=== PATIENT | female | born 1960 | race Caucasian/White ===

== ENCOUNTER 2020-07-27 10:59 | Outpatient (REF) | payer BC, SELFPAY | END 2020-07-27 11:00 | disposition home or self-care (01) | LOC: HO.WFDLDS 10:59 | PROVIDERS: PCP Internal Medicine; Visit Provider Internal Medicine | DX: Z20.828 Contact with and (suspected) exposure to other viral communicable diseases (principal) | CPT/HCPCS: 87635 ==

== ENCOUNTER → 2021-12-07 10:48 | Outpatient (BNVA) | payer BC, SELFPAY | PROVIDERS: PCP Internal Medicine; Visit Provider Physician Assistant ==

== ENCOUNTER → 2022-10-11 10:56 | Outpatient (BNVA) | payer BC, SELFPAY | PROVIDERS: PCP Internal Medicine; Visit Provider Physician Assistant | DX: Z13.89 Encounter for screening for other disorder (principal) ==

== ENCOUNTER 2022-10-11 11:49 | Outpatient (REF) | payer BC, SELFPAY ==
[2022-10-11 14:15] LABS: MANUAL DIFF FLAG NO
[2022-10-11 14:27] LABS: Basophils Percent Auto 0.7 % (0-2); Eosinophils Absolute Auto 0.2 X10*3/uL (0.0-0.4); Eosinophils Percent Auto 3.1 % (0-4); Hematocrit 37.1 % (37.0-47.0); Imm Gran Abs Auto 0.01 X10*3/uL (0.00-0.03); Imm Gran Pct Auto 0.2 % (0.0-0.4); Lymphocytes Absolute Auto 1.9 X10*3/uL (1.2-4.9); Lymphocytes Percent Auto 32.1 % (20-40); Mean Corpuscular HGB Conc 32.3 g/dl (31.0-35.0); Mean Corpuscular Hemoglobin 29.1 pg (27.0-33.0); Mean Corpuscular Volume 89.8 fL (80.0-98.0); Mean Platelet Volume 11.4 fL (9.4-12.3); Monocytes Absolute Auto 0.6 X10*3/uL (0.1-1.2); Monocytes Percent Auto 9.6 % (2-11); Neutrophils Absolute Auto 3.2 x10*3/uL (2.0-8.3); Neutrophils Percent Auto 54.3 % (45-73); Platelet Count 308 X10*3/uL (160-400); Red Blood Count 4.13 X10*6/uL (4.20-5.50); Red Cell Distribution Width 12.8 % (11.0-16.0); White Blood Count 5.8 X10*3/uL (4.8-10.8)
[2022-10-11 15:26] LABS: Alanine Aminotransferase 14 U/L (0-31); Albumin Level 4.4 g/dL (3.5-5.0); Alkaline Phosphatase 70 U/L (39-117); Anion Gap 12 (12-20); Aspartate Amino Transferase 21 U/L (5-31); Bilirubin Total 0.4 mg/dL (0.0-1.0); Blood Urea Nitrogen 17 mg/dL (9-16); Carbon Dioxide 27 mmol/L (22-29); Chloride 107 mmol/L (96-108); Estimated Glomerular Filt Rate > 60; Glucose Random 87 mg/dL (60-115); Potassium 4.1 mmol/L (3.3-5.1); Sodium 142 mmol/L (135-145); Total Protein 7.2 g/dL (6.5-8.0)
== END 2022-10-11 11:50 | disposition home or self-care (01) ==
LOC: HO.WFDLDS 11:49
PROVIDERS: Visit Provider Physician Assistant
DX: R10.13 Epigastric pain (principal); K58.9 Irritable bowel syndrome, unspecified; K21.9 Gastro-esophageal reflux disease without esophagitis; I42.2 Other hypertrophic cardiomyopathy
CPT/HCPCS: 36415; 80053; 85025

== ENCOUNTER 2022-10-11 14:58 | Outpatient (REF) | payer BC, SELFPAY ==
[2022-10-15 11:35] LABS: H Pylori Breath Test Negative (Negative)
== END 2022-10-11 14:59 | disposition home or self-care (01) ==
LOC: HO.LNP 14:58
PROVIDERS: Visit Provider Physician Assistant
DX: A04.8 Other specified bacterial intestinal infections (principal)
CPT/HCPCS: 83013

== ENCOUNTER 2022-12-05 08:29 | Outpatient (REF) | payer BC, SELFPAY ==
--- NOTE | ~2022-12-05 | FL_ITS ---
EXAMINATION: XR UPPER GI SERIES WITH SMALL BOWEL CLINICAL INFORMATION: Epigastric pain. COMPARISON: GI series 12/07/2007. TECHNIQUE: Routine upper GI air-contrast study with small bowel follow-through was performed. FINDINGS: Single supine view of the abdomen reveals scattered stool seen in colon without distention. There is no organomegaly. There is a small 7 mm phlebolith in the right pelvis. Following oral administration of thick barium and effervescent granules, there is normal propagation of bolus from the oral cavity through the pharynx and esophagus and into the stomach without any evidence of obstruction, narrowing or stricture. On placing patient supine and prone lying, the course, caliber and peristalsis of the stomach and the duodenum are normal. There is mild gastroesophageal reflux without hiatal hernia. Spot images of the small bowel loops reveal normal small bowel mucosal pattern. No obstruction seen. The small bowel transit time less than 1. Spot images of the ileocecal junction reveals normal terminal ileum. Appendix is normal caliber. FLUOROSCOPY TIME: 2.7 minutes. DOSE AREA PRODUCT: 40.293 uGy-m2 (microgray-meter squared). FL/FL upper GI small bowel IMPRESSION: Mild gastroesophageal reflux. Moderate constipation. Otherwise unremarkable upper GI air-contrast study. Normal small bowel follow-through.
== END 2022-12-05 08:30 | disposition home or self-care (01) ==
LOC: HO.XRAY 08:29
PROVIDERS: Visit Provider Physician Assistant
DX: R10.13 Epigastric pain (principal); K21.9 Gastro-esophageal reflux disease without esophagitis
CPT/HCPCS: 74240; 74248

== ENCOUNTER 2023-01-13 07:26 | Day surgery (SDC) | payer BC, SELFPAY ==
[2022-03-07 15:31] VITALS: BMI 26.3
[2023-01-10 16:01] VITALS: BMI 25.6
--- NOTE | 2023-01-12 10:38 | HO.ANESPROP2 ---
Documented by User: Lesley Xiao NP 01/12/23 10:45 HPI - Anesthesia Eval Consult details Narrative: 62yo F for Colonoscopy Cardiac cleared [facility] Active Problems Active Problems: All Active Problems (Updated 01/10/23 @ 16:07 by Tressa Hayden, FLORES) Screen for colon cancer (Acute) Acid reflux (Acute) Familial hypertrophic cardiomyopathy (Acute) Epigastric abdominal pain (Acute) Other soft tissue disorders related to use, overuse and pressure, unspecified upper arms (Acute) Past Medical History Medical History Elevated cholesterol HTN (hypertension) Hx of cardiac murmur Hx of motion sickness Hx of skin cancer, basal cell Hypertrophic cardiomyopathy Family History Family History Mother HTN (hypertension) Breast CA Father Gout Brother Skin cancer Surgical History Surgical History Hx of breast biopsy Hx of colonoscopy Hx of neck surgery Hx of tonsillectomy Social History Social History Household Members: None Are you a primary assistant child care teacher to a significant other at home: No Do you presently have visiting nurse or other home services: No Alcohol intake: current Alcohol intake frequency: holidays/special occasions only Patient Tobacco Use Status: Never used Tobacco Use of substances other than those prescribed or required for medical reasons: No Have you been hit, kicked, punched, or otherwise hurt by someone within the past year? If so, by whom?: No Are you DNR?: No Advance Directives: No Advance Directives Information Provided: Yes Advance Directives on File: No Recently lost weight without trying: No Eating poorly because of decreased appetite: No Nutrition Risks: No Nutritional Risk Patient : No Current occupational status: unemployed Meds Allergies Allergy/AdvReac Type Severity Reaction Status Date / Time Sulfa (Sulfonamide Allergy Intermediate RASH Verified 01/13/23 07:37 Antibiotics) Home Medications Medication Instructions Recorded Confirmed Last Taken Type atorvastatin 10 mg tablet 10 mg PO BEDTIME 12/07/21 10/11/22 Unknown History cranberry fruit concentrate 250 mg 250 mg PO DAILY 12/07/21 10/11/22 Unknown History chewable tablet (Azo Cranberry) calcium carbonate 600 mg calcium 1,200 mg PO DAILY 03/07/22 10/11/22 Unknown History (1,500 mg) tablet (Calcium) candesartan 4 mg tablet 1 tab PO DAILY 03/07/22 10/11/22 Unknown History multivitamin-ferrous 1 tab PO DAILY 03/07/22 10/11/22 Unknown History fumarate-folic acid 18 mg-400 mcg tablet (Centrum Women) verapamil 120 mg tablet,extended 1 tab PO BEDTIME 03/07/22 10/11/22 Unknown History release Exam Exam Date and Time: January 12, 2023 1038 Height,Weight and Vital Signs: Height 5 ft 2 in Weight 63.503 kg Pertinent Lab Results Pertinent Lab Results: Laboratory Tests 10/11/22 10/11/22 11:55 11:55 WBC 5.8 Hgb 12.0 Hct 37.1 Plt Count 308 Sodium 142 Potassium 4.1 Chloride 107 Carbon Dioxide 27 BUN 17 H Creatinine 0.73 Narrative Narrative: EKG 12/2022 (from cardiac clearancea appt) NSR T wave inversions in inferolateral leads No change from previous ECHO 03/2022 Asymmetrical septal hypertrophy LV small in size Hyperdynamic LV systolic function with EF >70% No WMA Clear flow acceleration seen in LVOT at rest and increases with Valsalva to 123mmHg RV nml in size and function No aortic insufficiency noted Mild increase in aortic valve gradients in the setting of mild outflow tract obstruction Trace mitral regurg but no stenosis Mild tricuspid regurg Assessment and Plan Assessment Anesthesia Assessment: Chart Reviewed Documented by User: Halie Santamaria MD 01/13/23 08:58 [facility] Past Medical History Medical History Elevated cholesterol HTN (hypertension) Hx of cardiac murmur Hx of motion sickness Hx of skin cancer, basal cell Hypertrophic cardiomyopathy Family History Family History Mother HTN (hypertension) Breast CA Father Gout Brother Skin cancer Family history of problems with anesthesia: No Surgical History Surgical History Hx of breast biopsy Hx of colonoscopy Hx of neck surgery Hx of tonsillectomy History of Problems with Anesthesia: No Social History Social History Household Members: None Are you a primary assistant child care teacher to a significant other at home: No Do you presently have visiting nurse or other home services: No Alcohol intake: current Alcohol intake frequency: holidays/special occasions only Patient Tobacco Use Status: Never used Tobacco Use of substances other than those prescribed or required for medical reasons: No Have you been hit, kicked, punched, or otherwise hurt by someone within the past year? If so, by whom?: No Are you DNR?: No Advance Directives: No Advance Directives Information Provided: Yes Advance Directives on File: No Recently lost weight without trying: No Eating poorly because of decreased appetite: No Nutrition Risks: No Nutritional Risk Patient : No Current occupational status: unemployed Meds Allergies Allergy/AdvReac Type Severity Reaction Status Date / Time Sulfa (Sulfonamide Allergy Intermediate RASH Verified 01/13/23 07:37 Antibiotics) Home Medications Medication Instructions Recorded Confirmed Last Taken Type atorvastatin 10 mg tablet 10 mg PO BEDTIME 12/07/21 10/11/22 Unknown History cranberry fruit concentrate 250 mg 250 mg PO DAILY 12/07/21 10/11/22 Unknown History chewable tablet (Azo Cranberry) calcium carbonate 600 mg calcium 1,200 mg PO DAILY 03/07/22 10/11/22 Unknown History (1,500 mg) tablet (Calcium) candesartan 4 mg tablet 1 tab PO DAILY 03/07/22 10/11/22 Unknown History multivitamin-ferrous 1 tab PO DAILY 03/07/22 10/11/22 Unknown History fumarate-folic acid 18 mg-400 mcg tablet (Centrum Women) verapamil 120 mg tablet,extended 1 tab PO BEDTIME 03/07/22 10/11/22 Unknown History release Exam Airway Mallampati Class: II TM Dist: >3cm Neck ROM: Full Loose/Missing/Broken Teeth: No Heart: rr Lungs: cta Assessment and Plan Assessment Anesthesia Assessment: Anesthesia Plan Discussed Final Anesthetic Review Family History of Problems with Anesthesia: No History of Problems with Anesthesia: No NPO: Yes ASA Class: II Final Preanesthetic Review: No Changes in Pt Med Stat, Meds/Allgs Chart Reviewed, Consent Obtained/Reviewed and Anes Risks/Benef Reviewed Patient Risk: Low Procedure Risk: Low Anesthetic Plan Anesthetic Plan: MAC:
[2023-01-13] MEDS: Lactated Ringers 1,000 ML 50 ML IVCONT (07:42)
[2023-01-13 08:02] VITALS: BP 149/66; PULSE 76; RESP 18; TEMP 36.6; O2SAT 98
--- NOTE | 2023-01-13 08:11 | MHC.SHP ---
Pre-Procedural Eval Section A Date of Service: 01/13/23 The patient is an INPATIENT: No The History & Physical has been completed within 30 days and I have reviewed it.: No Section B Chief Complaint: screening Relevant Family History (Specify if Yes): No Relevant Social History: None Present Medications: see Short Stay Collaborative assessment Medical History: Significant History (Elevated cholesterol HTN (hypertension) Hx of cardiac murmur Hx of motion sickness Hx of skin cancer, basal cell Hypertrophic cardiomyopathy) History of Previous Operations: Relevant previous surgery/procedure and date(s) (Hx of breast biopsy Hx of colonoscopy Hx of neck surgery Hx of tonsillectomy) Allergies: Allergies Allergy/AdvReac Type Severity Reaction Status Date / Time Sulfa (Sulfonamide Allergy Intermediate RASH Verified 01/13/23 07:37 Antibiotics) Review of Systems Sugical H&P ROS: Negative: Constitution, Cardiovascular, Respiratory and Gastrointestinal Exam Surgical H&P Exam: Normal: Heart, Normal: Lungs, Normal: Extremities and Normal: Abdomen Plan Diagnosis/Plan: Unchanged I have reviewed the history and physical and performed a pertinent physical examination on my patient. No changes have occurred unless specified. Time Spent With Patient Time: Total time managing care of this patient today ____ minutes.
--- NOTE | 2023-01-13 09:17 | W.PM.OPN ---
Operative Note Operative Note Date of Service: 01/13/23 Narrative: COLONOSCOPY TILL CECUM WITH SNARE POLYPECTOMY, SUBMUCOSAL INJECTION Pre-op diagnosis: COLON CANCER SCREENING Post-op diagnosis:? Colon polyps, diverticulosis, hemorrhoids Endoscopist:? Alice Morel MD Anesthesia:?MAC Consent: Indications for the procedure and potential complications of bleeding, perforation, reaction to medications and missed diagnosis were discussed with the patient and informed consent was obtained. Instrument: Olympus PCF H 190 L variable stiffness pediatric colonoscope Monitoring: Vital signs and clinical assessment, intermittent blood pressure monitoring, continuous EKG monitoring, Pulse oximetry and Carbon Dioxide monitoring were done throughout the procedure. Please see anesthesia flowsheet. Colon withdrawl time was 24 minutes. Procedure: The patient was placed in the left lateral decubitis position and pre-procedure medications were administered. After a digital rectal examination of the ano-rectum, the video colonoscope was inserted into the rectum and advanced through the colon to the cecum. The colonoscope was slowly withdrawn in a retrograde panoramic fashion and the colon mucosa was carefully examined including a retroflexed view of the rectum. Findings and interventions are described below. Procedure Difficulty: Colon was long and there was some loop formation - no maneuvers were required Findings: Terminal Ileum: Not evaluated Cecum: Normal Ascending Colon: A 12- 15 mm flat polyp raised with 2 cc of Eleview and removed with a stiff snare. Polypectomy site was marked by Janis ink. Transverse Colon: Normal Descending Colon: Moderate diverticulosis Sigmoid Colon: A 10-12 mm sessile polyp - removed with a hot snare. Moderate diverticulosis Rectum: Normal Ano-rectum: Moderate internal hemorrhoids Colon preparation: Good after some irrigation Impression and Post Procedure Diagnosis: Colonoscopy Findings: Two medium sized polyps removed Moderate diverticulosis seen in the left colon Moderate hemorrhoids on retroflexed exam. Plan: Await pathology results Patient has an appointment on 01/31/23 in the GI [facility] with STEVEN Astorga . Repeat Colonoscopy interval based on path results - in 2-3 years if polyps are adenomatous and 10 years if polyps are hyperplastic. Above findings were reviewed with the patient and colon polyps and diverticulosis handouts were given in the discharge area
[2023-01-13 09:23] VITALS: BP 96/42; PULSE 64; RESP 16; TEMP 36.1; O2SAT 99
[2023-01-13 09:38] VITALS: BP 123/66; PULSE 60; RESP 18; TEMP 36.1; O2SAT 99
== END 2023-01-13 10:15 | disposition home or self-care (01) ==
PROVIDERS: PCP Internal Medicine; Visit Provider Internal Medicine Gastroenterology
PROC: 0DJD8ZZ Inspection of Lower Intestinal Tract, Via Natural or Artificial Opening Endoscopic (ICD-10-PCS; CPT 45378; principal; 2023-01-13 08:30)
DX: Z12.11 Encounter for screening for malignant neoplasm of colon (principal); D12.2 Benign neoplasm of ascending colon; D12.5 Benign neoplasm of sigmoid colon; K57.30 Diverticulosis of large intestine without perforation or abscess without bleeding; K64.8 Other hemorrhoids; I10 Essential (primary) hypertension; I42.2 Other hypertrophic cardiomyopathy; E78.00 Pure hypercholesterolemia, unspecified; Z79.899 Other long term (current) drug therapy; Z88.2 Allergy status to sulfonamides; Z85.828 Personal history of other malignant neoplasm of skin
CPT/HCPCS: 45385; 45381; 88305

== ENCOUNTER → 2023-01-31 11:34 | Outpatient (BNVA) | payer BC, SELFPAY | PROVIDERS: PCP Internal Medicine; Visit Provider Physician Assistant | DX: Z13.89 Encounter for screening for other disorder (principal) ==

== ENCOUNTER → 2024-12-02 07:33 | Outpatient (BNVA) | payer BC, SELFPAY | PROVIDERS: PCP Internal Medicine; Visit Provider Internal Medicine Gastroenterology ==